=== PATIENT | male | born 1950 | race Caucasian/White ===

== ENCOUNTER → 2018-09-22 | Outpatient (CLI) | payer MEDICARE, OTHER ==
--- NOTE | 2018-09-22 10:44 | Diagnostic Imaging Report ---
CLINICAL INDICATION: Patient is having numbness left cheek for 2 months. EXAM: Axial CT scan of the maxillofacial structures without IV contrast . Coronal and sagittal reformations were performed. COMPARISON: None. FINDINGS: PARANASAL SINUSES: FRONTAL: Unremarkable. ETHMOID: There is mild ethmoid sinus mucosal thickening. MAXILLARY: There are small areas of mucus retention cysts in both maxillary sinuses. SPHENOID: There is a small mucus retention cyst in the left sphenoid sinus region. OTHER PARANASAL SINUS FINDINGS: There is mild mucosal thickening involving the nasal cavity. NASAL SEPTUM: There is rightward nasal septal deviation with a small rightward directed nasal septal bony spur. VISUALIZED TEMPORAL BONE STRUCTURES: Unremarkable. BONY STRUCTURES: There is periapical erosions with adjacent bony sclerosis involving the mandibular left second molar tooth. EXTRACRANIAL SOFT TISSUE/ ORBITS: Unremarkable. IMPRESSION: 1: Mild paranasal sinus disease. 2: Dental caries with periapical bony erosions and adjacent bony sclerotic changes involving the mandibular left second molar tooth. Dental consultation would better evaluate. 3: There is rightward nasal septal deviation with a rightward directed nasal septal bony spur. Dictated by: Dictated on workstation # [id number]
== END ==
LOC: RAD FS 10:06
PROVIDERS: ATTEND Otolaryngology Otolaryngology/Facial Plastic Surgery
DX: J32.9 Chronic sinusitis, unspecified (principal); K02.9 Dental caries, unspecified; M85.88 Other specified disorders of bone density and structure, other site; M89.9 Disorder of bone, unspecified; J34.2 Deviated nasal septum
CPT/HCPCS: 70486